=== PATIENT | female | born 1955 ===

== ENCOUNTER 2017-03-21 08:29 | Outpatient (CLI) | payer BC ==
--- NOTE | 2017-03-21 11:29 | Mammography Report ---
STEREOTACTIC VACUUM ASSISTED BIOPSY WITH CLIP PLACEMENT RIGHT BREAST: 03/21/17 08:29:00 CLINICAL: A noncalcified nodule or lymph node in the outer breast. COMPARISON:A previous [facility] mammogram. FINDINGS: Consent for the procedure was obtained. The lesion was targeted with stereotactic guidance. The skin was prepped with Betadine and anesthetized with 1% lidocaine. 2% lidocaine with epinephrine was injected for deeper anesthesia. 8 gauge Mammotome biopsy was performed from a CC from above approach through a small dermatotomy. Prefire and post-fire images demonstrated satisfactory positioning of the probe. Samples were obtained around the clock face. A specimen radiograph was obtained and portions of a mass appeared to be in the specimen. A clip was placed at the biopsy site and the placement was confirmed with a radiograph. The probe was removed and hemostasis was achieved with mild pressure. A sterile dressing was applied. The patient tolerated the procedure well and there were no apparent complications. A 2 view mammogram demonstrated the localizer clip but concordance cannot be determined with certainty based on these images. IMPRESSION: Uncomplicated stereotactic biopsy with clip placement right breast.A repeat mammogram without a bandage and when more optimal compression is allowed, may be more conclusive for determining whether the lesion was sampled.
--- NOTE | 2017-03-21 11:36 | Mammography Report ---
RIGHT DIGITAL DIAGNOSTIC MAMMOGRAM: 03/21/17 08:29:00 CLINICAL: For clip placement immediately status post ultrasound biopsy. COMPARISON:The post clip images are compared to two views which were obtained prior to the stereotactic biopsy. FINDINGS: A biopsy clip is now identified in the outer breast and appears to be concordant on the CC view. However, a distinct mass is not identified on the CC view. This can be at least partially explained by injected lidocaine which may obscure margins. IMPRESSION: Clip deployment after stereotactic biopsy.A repeat mammogram without a bandage in remarkable compression is allowed, maybe more conclusive for determining whether the lesion was sampled and whether the clip deployment is concordant. BI-RADS CATEGORY: 4--Suspicious Pathology pending.
== END 2017-03-21 08:30 | disposition home or self-care (01) ==
LOC: SPVWC 08:29
PROVIDERS: ATTEND Surgery
DX: N60.11 Diffuse cystic mastopathy of right breast (principal); N63.0 Unspecified lump in unspecified breast; R92.1 Mammographic calcification found on diagnostic imaging of breast
CPT/HCPCS: 19081; 88305; A4648; G0206

== ENCOUNTER 2017-06-04 08:23 | Outpatient (CLI) | payer BC ==
--- NOTE | 2017-06-04 09:30 | Mammography Report ---
RIGHT DIGITAL DIAGNOSTIC MAMMOGRAM with CAD: 06/04/17 08:23:00 CLINICAL: Follow-up after benign biopsy.. COMPARISON:03/21/17 FINDINGS: A right upper outer biopsy clip correlates with the site of the stereotactic biopsy on 03/21/17. Asymmetry is identified at the clip on the CC view but there is no finding on the MLO view. No mass, architectural distortion or suspicious calcifications. IMPRESSION: No mammographic evidence of malignancy. BI-RADS CATEGORY: 2 -- Benign RECOMMENDATION: Return to routine mammographic screening. ACR BI-RADS MAMMOGRAPHIC CODES: 0 = Needs additional imaging evaluation; 1 = Negative; 2 = Benign; 3 = Probably benign; 4 = Suspicious; 5 = Malignant; 6 = Known biopsy-proven malignancy COMMENT: 1. Dense breast tissue, i.e., adenosis, fibrocystic changes, etc., may obscure an underlying neoplasm. 2. Approximately 10% of cancers are not detected with mammography. 3. A negative mammography report should not delay biopsy if a clinically suspicious mass is present. COMMENT: Patient follow-up letters are generated by our [employer] application.
== END 2017-06-04 08:24 | disposition home or self-care (01) ==
LOC: SPVWC 08:23
PROVIDERS: ATTEND Surgery
DX: R92.2 Inconclusive mammogram (principal)
CPT/HCPCS: G0206-RT